=== PATIENT | female | born 1950 | race Caucasian/White ===

== ENCOUNTER 2018-05-22 06:17 | Inpatient (IN) | payer MEDICARE, OTHER ==
--- NOTE | 2018-05-03 09:34 | ANES ---
Anesthesia Pre Procedure Eval Allergies/Adverse Reactions: Allergies Allergy/AdvReac Type Severity Reaction Status Date / Time adhesive tape Allergy swelling, Verified 05/03/18 09:25 blisters nitrofurantoin Allergy swelling Verified 05/03/18 09:25 [From Macrobid] Penicillins Allergy Hives Verified 05/03/18 09:25 Sulfa (Sulfonamide Allergy swelling Verified 05/03/18 09:25 Antibiotics) fructose AdvReac intolerance Verified 05/03/18 09:25 - Planned Procedure Planned Procedure: Left Arthroplasty Total Knee Medication List Reviewed:: Yes Allergies Verified: Yes - Family Anesthesia History Family History:: no untoward family reactions to anesthesia, no familial bleeding tendencies, no family history of clotting disorders, no family history of premature - Airway/Neck/Teeth Within Normal Limits:: Yes Teeth Condition: Intact Neck Exam: non-tender, full range of motion, normal alignment Mallampatti Score: 2 Thyromental (T-M) distance: > 6 cm Mandibulo Hyoid distance: > 3 cm - Small mouth - Respiratory Respiratory: chest non-tender, lungs clear, normal breath sounds, no respiratory distress Smoking Status: Former smoker Sleep Apnea currently treated: Yes Sleep Apnea by current assessment: Yes Discussed Risks/Treatment of TYRA: Yes Comments:: Adductor canal block for post op pain relief - Cardiovascular Patient History - Cardiac/Respiratory: Hypertension, Hyperlipidemia Tolerates Activity: Fair Heart Sounds: S1 & S2, Regular - Anesthesia Assessment and Plan ASA Class: PS, III Anesthesia Type Plan: Block, Spinal Planned difficult intubation/equipment available: No
[~2018-05-22 06:17] MED LIST: RINGER'S SOLUTION,LACTATED 1,000 ML IV PRN; ROPIVACAINE HCL/PF 100 MG, EPINEPHrine 0.2 MG, KETOROLAC TROMETHAMINE 30 MG in NORMAL S... IJ PRN; TRANEXAMIC ACID 1,000 MG in NORMAL SALINE 100 ML IV PRN; ceFAZolin SODIUM 1 GM VIAL IM ONE; ceFAZolin SODIUM 1 GM VIAL IV PRN
--- NOTE | 2018-05-22 07:32 | ANES ---
Anesthesia Pre Procedure Eval Vitals/Labs: Last Vital Signs Temp 36.2 C 05/22/18 06:29 Pulse 99 05/22/18 06:29 Resp 16 05/22/18 06:29 BP 125/42 05/22/18 06:29 Pulse Ox 99 05/22/18 06:29 HOME MEDICATIONS Aspirin [Adult Aspirin] 81 mg PO DAILY 05/03/18 [Last Taken 05/12/18] Atorvastatin Calcium 10 mg PO HS 05/03/18 [Last Taken Unknown] Esomeprazole Magnesium [Nexium] 20 mg PO DAILY PRN 05/03/18 [Last Taken Unknown] Latanoprost/Pf [Latanoprost 0.005% Eye Drop] 7.5 ml OP HS 05/03/18 [Last Taken Unknown] Lisinopril 20 mg PO DAILY 05/03/18 [Last Taken 05/21/18 19:30] Pioglitazone HCl 30 mg PO DAILY 05/03/18 [Last Taken Unknown] Timolol Maleate 5 ml OP DAILY 05/03/18 [Last Taken Unknown] cetirizine 10 mg capsule 10 mg PO DAILY cap 05/16/18 [Last Taken Unknown] gabapentin 300 mg capsule 300 mg PO TID PRN 05/16/18 [Last Taken Unknown] Allergies/Adverse Reactions: Allergies Allergy/AdvReac Type Severity Reaction Status Date / Time adhesive tape Allergy swelling, Verified 05/22/18 06:44 blisters nitrofurantoin Allergy swelling Verified 05/22/18 06:44 [From Macrobid] Penicillins Allergy Hives Verified 05/22/18 06:44 Sulfa (Sulfonamide Allergy swelling Verified 05/22/18 06:44 Antibiotics) fructose AdvReac intolerance Verified 05/22/18 06:44 - Planned Procedure Planned Procedure: Left Arthroplasty Total Knee Medication List Reviewed:: Yes Allergies Verified: Yes Medical History (Last Reviewed 05/22/18 @ 06:44 by Bertha Elias) Arthritis CVA (cerebral vascular accident) Diabetes Former tobacco use Fructose intolerance Onset Date: ~2002 GERD (gastroesophageal reflux disease) Onset Date: 11/17/00 Hiatal hernia Onset Date: ~1999 Hx of cerebral embolism Onset Date: Unknown Hyperlipidemia Onset Date: ~2002 Hypertension Onset Date: 01/05/88 Lives with spouse Peptic ulcer Onset Date: 08/16/91 Rarely consumes alcohol Shingles Onset Date: ~2003 Stress incontinence Onset Date: 04/28/90 Uterine prolapse Onset Date: 12/22/12 Wears glasses Surgical History (Last Reviewed 05/22/18 @ 06:44 by Bertha Elias) History of adenoidectomy Onset Date: ~1961 History of bladder suspension procedure Onset Date: ~1994 History of colonoscopy Onset Date: 10/21/09 History of conization of cervix Onset Date: ~2009 History of detached retina repair History of foot surgery History of surgical procedure on eye proper using laser History of tonsillectomy Onset Date: ~1961 Family History (Last Reviewed 05/22/18 @ 06:44 by Bertha Elias) Mother Diabetes Alzheimers disease Pacemaker Sister Breast cancer Sister Diabetes Father Aneurysm Hypertension Grandmother Breast cancer Heart disease Grandfather Myocardial infarction Heart disease Grandmother Cancer - Airway/Neck/Teeth Within Normal Limits:: Yes Teeth Condition: Intact Mallampatti Score: 2 Thyromental (T-M) distance: > 6 cm Mandibulo Hyoid distance: > 3 cm - Respiratory Respiratory: lungs clear Smoking Status: Former smoker Discussed smoking cessation including day of surgery: No Sleep Apnea currently treated: No Sleep Apnea by current assessment: Yes Discussed Risks/Treatment of TYRA: Yes - Cardiovascular Tolerates Activity: Fair Heart Sounds: S1 & S2, Regular - Anesthesia Assessment and Plan ASA Class: PS, III Anesthesia Type Plan: Block - ultrasound guided adductor canal nerve block for postop analgesia, Spinal
[2018-05-22] MEDS: RINGER'S SOLUTION,LACTATED 1,000 ML IV PRN ×2 (07:47→09:09)
[2018-05-22] MEDS ORDERED: ACETAMINOPHEN 500 MG TABLET PO PRN (10:10)
[2018-05-22] MEDS ORDERED: MORPHINE SULFATE 2 MG/ML DISP.SYRIN IV PRN (10:10)
[2018-05-22] MEDS ORDERED: MAGNESIUM HYDROXIDE 30 ML UDC PO PRN (10:10)
[2018-05-22] MEDS ORDERED: ZOLPIDEM TARTRATE 5 MG TABLET PO PRN (10:10)
[2018-05-22] MEDS ORDERED: DEXTROSE 5%-LACTATED RINGERS 1,000 ML IV PRN (10:10)
[2018-05-22] MEDS ORDERED: diphenhydrAMINE HCL 50 MG/ML VIAL IV PRN (10:10)
[2018-05-22] MEDS ORDERED: MAG HYDROX/ALUMINUM HYD/SIMETH 30 ML UDC PO PRN (10:10)
--- NOTE | 2018-05-22 10:10 | OR ---
Operative Report - Dictated Report Narrative: Date: 05/22/2018 Preoperative diagnosis: Left Knee degenerative joint disease. Postoperative diagnosis: Left Knee degenerative joint disease. Procedure: Left Total knee arthroplasty. Surgeon: Dmitriy Asher M.D. Mask Inspector: Roman Mckee PA-C Anesthesia: Spinal with regional block and local periarticular joint injection. Complications: None Specimens: Bone for disposal. Estimated blood loss: Minimal. Tourniquet time: 88 Minutes at 325 millimeters of mercury. Retained implants: Depuy Attune size 5 narrow left lugged cemented posterior stabilized femoral component. Size 3 fixed-bearing cemented tibial platform. 5 by 5 millimeter posterior stabilized cross-linked tibial insert. 35 millimeter medialized patella button. Indications: Mrs. Argueta is a 68-year-old female who has had long-standing left knee pain and arthrosis. This patient was followed in my clinic for period of time with significant complaints of left knee pain consistent with arthritic changes. She had failed conservative measures including, but not limited to, activity modification, passage of time, medications, and other conservative measures. Patient wished to proceed with surgical treatment. The risks, benefits, and alternatives were discussed in clinic. The risks of , blood clots, bleeding, infection, nerve/tendon blood vessel/ injury, malposition of components, intraoperative fracture, postoperative limited range of motion, persistent pain, failure of components, and need for additional procedures. Patient wished to proceed consent was obtained after answering all questions. Procedure: After marking the correct extremity on the floor, the patient was taken to the operating room. A timeout was performed. IV antibiotics consisting of Ancef were administered prior to the procedure. A regional followed by spinal anesthetic was induced by anesthesia, per my request, on the operative table with all bony prominences well-padded. Mckeon catheter was placed, and a bump was placed under the operative side buttock. SCDs and ZO hose were utilized on the nonoperative leg. A well-padded tourniquet was applied to the operative thigh. The operative leg was then pre-scrubbed with alcohol prepped, and draped in a standard sterile fashion. After exsanguinating the extremity with an Esmarch bandage, the tourniquet was inflated. After marking out the anterior knee for standard incision centered over the patella, the skin was incised and dissected down to the joint retinaculum. The joint retinaculum was marked out as well as the horizontal axis of the patella, and a standard medial parapatellar arthrotomy was then made. The most proximal aspect of the quadriceps tendon and the patella tendon insertion were protected from release. A partial synovectomy was performed as well as a resection of the infrapatellar fat pad. The distal femoral fat pad proximal to the trochlea was also resected using cautery. The soft tissues were elevated off the medial aspect of the proximal tibia using a Montes elevator ensuring that we did not transect the medial collateral ligament. Upon initial evaluation range of motion was approximately 0 degrees to 130 degrees of flexion. There were signs of advanced arthrosis in the medial patellofemoral greater than lateral joint spaces. There were large marginal osteophytes which were removed with a rongeur. The knee was hyperflexed and the patella was tucked laterally. Protecting the surrounding soft tissues with Homans, an entry drill was placed down the femoral canal using Whitesides line for guidance into the entry point. The intramedullary femoral alignment trey was utilized in order to cut the distal femur in 5 degrees of valgus resecting 10 millimeters of bone. Next the distal femur was sized to a size 5. A posterior referencing guide was utilized to place the distal femoral cutting block in 3 degrees of external rotation. This was pinned into place. The rotation was confirmed both visually and based on anatomic landmarks. The 4 in 1 cutting jig of the appropriate size was utilized in order to make all bony cuts. The angle wing was used to ensure no notching. Retractors were utilized in order to protect surrounding soft tissues. This cut did not result in any excessive notching. We then cut the box centered over the distal femur. This allowed for resection of the anterior and posterior cruciate ligaments. I then turned my attention to the preparation of the tibia. Using an extra medullary tibial alignment trey, 6 millimeters of bone was resected off the medial articular surface. This was made perpendicular to the mechanical axis of the joint with the alignment trey centered over the ankle mortise. The alignment trey was checked and was noted to be parallel to the mechanical axis, centered over the medial one third of the tibial tubercle, paralleling the anterior surface of the tibia. We then turned our attention to the remaining meniscus and soft tissues. These were removed while protecting the surrounding ligaments and soft tissues. The marginal osteophytes off the anterior, posterior, medial, lateral aspects of the femur and tibia were removed. The tibia was sized out to a size 3. Next the tibia was drilled and punched in an externally rotated position. Next the trial femur and a series of tibial inserts were utilized in order to allow for full extension and maximal flexion. It was found that a 5 millimeter insert gave the best range of motion and stability at multiple flexion points as well as at full extension there was less than 2 mm of gapping both medially and laterally. There is minimal anterior translation with the knee at 90 degrees of flexion and no signs of being able to dislocate the knee. The patella was then prepared. The initial thickness was 22 millimeters. This was reamed down to 12 millimeters parallel to the anterior surface of the patella. It was sized out to a size 35 medialized patella button. This was then drilled and trialed. Without any medial restraint the patella tracked appropriately and did not sublux or dislocate. At this point, it was felt these were the appropriate sized implants, and all trials were removed. The standard periarticular joint injection consisting of ropivacaine, Toradol, and epinephrine were injected into the periarticular joint tissues. The bony surfaces were thoroughly irrigated with a pulsatile- suction saline irrigation device. A bone plug from the prior resected anterior chamfer cut was placed into the drill hole at the distal femur. The bony surfaces were then dried in preparation for placement of the implants. The cement was vacuum mixed per the cloth hauler's instructions. The cement was placed on the dry bony surfaces and posterior aspect of the implants. The implants were impacted into place, removing all extruded cement. At this point anesthesia administered tranexamic acid per protocol intravenously. The knee was placed in extension with axial loading with the trial insert while the cement cured. Once the cement cured, all remaining extruded cement was removed. The knee was placed through a range of motion with the trial insert to ensure appropriate range of motion and stability. Final range of motion was approximately 0 to 130 degrees. The knee was again thoroughly irrigated with pulsatile saline lavage. The final polyethylene insert was then impacted into place ensuring no retained soft tissues. The remaining periarticular joint injection was injected. A medium Hemovac drain was placed exiting superior laterally. The knee was then placed over a triangle and the arthrotomy was closed with interrupted #1 Vicryl after thoroughly irrigating the joint. The deep and subcutaneous tissues were closed with interrupted 0 and 3-0 Vicryl respectively. Skin was closed with a running subcutaneous 3-0 Monocryl and Prineo Dermabond dressing. 4 x 4's, Sof-Rol, and a full leg Melo wrap were applied. All sponge, needle, blade, and instrument counts were correct prior to closing the wounds. Postoperative condition: The patient was awoken and transferred to the postanesthesia care unit in stable condition. Plan is to be admitted to the inpatient medical/surgical floor postoperatively for 24 hours of IV antibiotics , physical therapy, occupational therapy, and medical comanagement. Patient will be weightbearing as tolerated with range of motion as tolerated. DVT prophylaxis will be with SCDs, ZO hose, and pharmacological anticoagulation. Anticipated hospital stay is approximately 1-3 days.
[2018-05-22] MEDS ORDERED: GABAPENTIN 300 MG CAPSULE PO PRN (10:12)
[2018-05-22] MEDS ORDERED: PANTOPRAZOLE SODIUM 20 MG TABLET.DR PO PRN (10:12)
[2018-05-22] MEDS ORDERED: RINGER'S SOLUTION,LACTATED 1,000 ML IV PRN (10:14)
--- NOTE | 2018-05-22 10:29 | ANES ---
Post Anesthesia Discharge - Transfer of Care Transfer of Care handoff given to nurse: Yes - Discharge from PACU Discharge from PACU when meets criteria: Yes - Discharge to ASU Discharge to ASU-no complications/pt stable: Yes
--- NOTE | 2018-05-22 10:31 | ANES ---
Anesthesia Procedure Note Procedure Note: ANESTHESIA PROCEDURE NOTE Date of Procedure: 05/22/2018. Time of procedure: 809. Performed by: Rajan Lott CRNA Client Solutions Manager: None. Preprocedure diagnosis: Left knee degenerative joint disease. Post procedure diagnosis: Same. Procedure: Left ultrasound guided adductor canal block for postoperative analgesia. Indications: The patient is a 68 -year-old female, requesting left ultrasound- guided abductor canal block for postoperative analgesia related to left total knee arthroplasty. Findings: See below. Details of the procedure: The tissue over the intended target site was cleansed with ChloraPrepand draped in a sterile fashion. 2 ml Lidocaine 1 % was infiltrated to the skin and subcutaneous tissue at the intended target site. Under sterile technique and ultrasound guidance a 18-gauge Tuohy needle was inserted through the left sartorius muscle to the saphenous nerve just anterior and medial to the superficial femoral artery and vein. 15 mL's of 0.5% bupivacaine was injected after negative aspiration for blood. Needle tip and spread of local anesthetic surrounding the saphenous nerve was observed throughout the injection with real time ultrasound visualization. The Tuohy needle was then removed intact. No complications were noted. The images were retained in the Hospital medical database . EBL: Minimal. Fluids: N/A. Specimen: N/A. Post procedure condition: The patient tolerated the procedure well. No complications were noted. Thank you for this consultation. Rajan Lott CRNA
--- NOTE | 2018-05-22 12:56 | ANES ---
Post Anesthesia Assessment - Vital Signs Vitals: Last Vital Signs Temp 36.4 C 05/22/18 10:57 Pulse 83 05/22/18 10:57 Resp 18 05/22/18 10:45 BP 124/51 05/22/18 10:45 Pulse Ox 96 05/22/18 10:57 Airway Patency: Normal - Mental Status Level Of Consciousness: Awake - Pain Level Pain Score: 0 - N/V Assessment Nausea/Vomiting Presence: None Dehydration:: No
[2018-05-22] MEDS: ceFAZolin SODIUM 1 GM in DEXTROSE 5 % IN WATER 100 ML IV SCH ×4 (13:06→17:31)
[2018-05-22] MEDS: KETOROLAC TROMETHAMINE 15 MG/ML VIAL IV SCH ×3 (13:20→22:17)
[2018-05-22] MEDS: oxyCODONE HCL/ACETAMINOPHEN 1 TAB TABLET PO PRN (15:55)
[2018-05-22] MEDS: ONDANSETRON HCL/PF 2 MG/ML VIAL IV PRN (18:04)
[2018-05-22] MEDS: MORPHINE SULFATE 15 MG TABLET.SA PO SCH (22:09)
[2018-05-22] MEDS: SENNOSIDES/DOCUSATE SODIUM 1 TAB TABLET PO SCH (22:09)
[2018-05-22] MEDS: ROSUVASTATIN CALCIUM 10 MG TABLET PO SCH (22:09)
[2018-05-22] MEDS: LATANOPROST 25 DROP BTL LEFTEYE SCH (22:10)
[2018-05-23] MEDS: ceFAZolin SODIUM 1 GM in DEXTROSE 5 % IN WATER 100 ML IV SCH ×2 (00:25)
[2018-05-23] MEDS: oxyCODONE HCL/ACETAMINOPHEN 1 TAB TABLET PO PRN ×3 (00:26→19:31)
[2018-05-23] MEDS: KETOROLAC TROMETHAMINE 15 MG/ML VIAL IV SCH ×4 (04:37→22:28)
[2018-05-23 05:19] LABS: Hematocrit 30.1 % (37.0-47.0); Hemoglobin 9.8 gm/dL (12.5-16.0); Mean Cell Volume 94.7 fl (78-100); Mean Corpuscular Hemoglobin 30.8 pg (27-31); Mean Corpuscular Hgb Conc 32.6 g/dl (32-36); Platelet Count 187 K/mm3 (150-450); Red Blood Count 3.18 M/mm3 (4.2-5.4); Red Cell Distribution Width 14.3 % (11.5-14.0); White Blood Count 7.5 K/mm3 (4.0-10.5)
[2018-05-23 05:37] LABS: Anion Gap 9.2 mmol/L (6.8-13.8); BUN/Creatinine Ratio 19.4 (9.0-21.6); Calcium * 8.5 mg/dL (7.9-10.9); Estimated Creat Clear 41.2; Potassium 4.2 mmol/L (3.4-4.6)
[2018-05-23] MEDS ORDERED: ROPIVACAINE HCL/PF 100 MG, EPINEPHrine 0.2 MG, KETOROLAC TROMETHAMINE 30 MG in NORMAL S... IJ PRN (06:00)
[2018-05-23] MEDS ORDERED: RINGER'S SOLUTION,LACTATED 1,000 ML IV PRN (06:00)
[2018-05-23] MEDS ORDERED: TRANEXAMIC ACID 1,000 MG in NORMAL SALINE 100 ML IV PRN (06:00)
[2018-05-23] MEDS: ONDANSETRON HCL/PF 2 MG/ML VIAL IV PRN ×2 (07:55→19:32)
--- NOTE | 2018-05-23 08:05 | PN ---
Subjective - Date and Time Seen Date: 05/23/18 Time: 08:01 Subjective Narrative: Subjective: Reports nausea with some vomiting this morning. Was able to walk in the case with therapy. Pain is well-controlled. Voiding without any complications. Tolerating by mouth intake. Denies calf pain. Slept well. Physical exam: Alert and oriented to person, place and time Left lower Extremity: Palpable dorsalis pedis pulse. Sensation grossly intact to light touch. Dressings clean and dry. Able to flex and extend ankle and toes. No excessive drainage. Calf and thigh are soft and nontender. Assessment: Postop day 1 status post left total knee arthroplasty. Plan: Due to the need for pain control, post-operative limited mobility, protection of the surgical site and joint, monitoring of the wound, and the management of chronic medical conditions, she requires continued inpatient care. Continue with physical and occupational therapy weightbearing as tolerated. Continue with anticoagulation. 24 hours postoperative prophylactic antibiotics. Pain control with goal to rely on oral medications -the nausea does not seem to be directly related to her pain medicines but we will adjust these if needed if she continues to have the nausea and vomiting. Continue bowel regimen. Will need 6 weeks with walker or assitive device to protect joint while ambulating during the recovery process. Discharge planning. Discontinue drain and Mckeon catheter. Objective - Vitals Vitals: Last Vital Signs Temp 36.5 C 05/23/18 06:17 Pulse 70 05/23/18 06:17 Resp 12 05/23/18 06:17 BP 127/50 05/23/18 06:17 Pulse Ox 98 05/23/18 06:17 - Abnormal Lab Findings Abnormal Lab Findings: Abnormal Lab Results 05/23/18 05/23/18 Range/Units 05:05 05:05 RBC 3.18 L (4.2-5.4) M/mm3 Hgb 9.8 L (12.5-16.0) gm/dL Hct 30.1 L (37.0-47.0) % RDW 14.3 H (11.5-14.0) % Est GFR (Non-Af Amer) 54 L (60-130) mL/min Random Glucose 156 H (70-110) mg/dL Cauti Physician Documentation - Urinary Catheter Management Urethral (Mckeon) Date of Insertion: 05/22/18 Time of Insertion: 08:30 Assessment/Plan - Problems/Diagnosis (1) Status post total left knee replacement Problem: Acute (2) Acute blood loss anemia Problem: Acute (3) Diabetes mellitus Problem: Chronic Qualifiers: Diabetes mellitus type: type 2 (4) Gastroesophageal reflux disease Problem: Chronic Qualifiers: (5) Hyperlipidemia Problem: Chronic Qualifiers: (6) Hypertension Problem: Chronic Qualifiers:
[2018-05-23] MEDS: TIMOLOL MALEATE 50 DROP BTL LEFTEYE SCH (09:33)
[2018-05-23] MEDS: ENOXAPARIN SODIUM 40 MG/0.4 ML SYRG SC SCH (09:36)
[2018-05-23] MEDS: PIOGLITAZONE HCL 15 MG TABLET PO SCH (11:15)
[2018-05-23] MEDS: LISINOPRIL 20 MG TABLET PO SCH (11:16)
[2018-05-23] MEDS: MORPHINE SULFATE 15 MG TABLET.SA PO SCH ×2 (11:16→20:59)
[2018-05-23] MEDS: LORATADINE 10 MG TABLET PO SCH (11:17)
[2018-05-23] MEDS: ROSUVASTATIN CALCIUM 10 MG TABLET PO SCH (20:55)
[2018-05-23] MEDS: SENNOSIDES/DOCUSATE SODIUM 1 TAB TABLET PO SCH (20:55)
[2018-05-23] MEDS: LATANOPROST 25 DROP BTL LEFTEYE SCH (20:56)
[2018-05-24] MEDS: ONDANSETRON HCL/PF 2 MG/ML VIAL IV PRN ×2 (01:36→07:58)
[2018-05-24] MEDS: oxyCODONE HCL/ACETAMINOPHEN 1 TAB TABLET PO PRN ×2 (01:41→13:32)
[2018-05-24] MEDS: KETOROLAC TROMETHAMINE 15 MG/ML VIAL IV SCH (05:09)
[2018-05-24] MEDS ORDERED: MINERAL OIL 1 ENEMA BTL RC ONE (09:17)
[2018-05-24] MEDS ORDERED: MINERAL OIL 1 ENEMA BTL RC PRN (09:19)
[2018-05-24] MEDS: PIOGLITAZONE HCL 15 MG TABLET PO SCH (10:01)
[2018-05-24] MEDS: ENOXAPARIN SODIUM 40 MG/0.4 ML SYRG SC SCH (10:02)
[2018-05-24] MEDS: LISINOPRIL 20 MG TABLET PO SCH (10:02)
[2018-05-24] MEDS: LORATADINE 10 MG TABLET PO SCH (10:02)
[2018-05-24] MEDS: TIMOLOL MALEATE 50 DROP BTL LEFTEYE SCH (10:03)
[2018-05-24] MEDS: MORPHINE SULFATE 15 MG TABLET.SA PO SCH (10:06)
--- NOTE | 2018-05-24 13:16 | DS ---
(1) Status post total left knee replacement Problem: Acute (2) Acute blood loss anemia Problem: Acute (3) Diabetes mellitus Problem: Chronic Qualifiers: Diabetes mellitus type: type 2 (4) Gastroesophageal reflux disease Problem: Chronic Qualifiers: (5) Hyperlipidemia Problem: Chronic Qualifiers: (6) Hypertension Problem: Chronic Qualifiers: Description of Stay: Mrs. Argueta was admitted to the floor after undergoing left total knee arthroplasty. Tolerated this well. Was admitted to the floor postoperatively for 24 hours of IV antibiotics, pain control, medical comanagement, and occupational and physical therapy. OT and PT were consulted to assist with activities of daily living and ambulation. Was made weightbearing as tolerated with range of motion as tolerated. Pain was initially controlled with IV regimen. This was transitioned to oral once tolerating a by mouth intake. Was resumed on home diet and medications. Had a Mckeon catheter inserted and the operating room which was discontinued on postoperative day 1. A drain was placed intraoperatively into the knee which was discontinued on postoperative day 1. Lovenox SCD and ZO hose were utilized for DVT prophylaxis. Vital signs remained stable to the hospital course. Serial labs were obtained which showed a final hemoglobin of 9.8 grams. BMP was reviewed and was stable. Physical examination throughout the hospital course showed an extremity that had sensation that was intact to light touch, palpable pulses, a benign wound, motor intact to the toes, ankle, and knee. Knee range of motion was approximately 5 degrees to 70 degrees. Once an oral pain regimen was tolerated and physical therapy goals were met, it was felt that they were stable for discharge to home. Instructions: Continue with weightbearing as tolerated and range of motion as tolerated. It is OK to shower on the wound if it is not draining. If you note any drainage or for comfort you can cover with dry gauze and tape. Change every 2-3 days as needed. Continue with physical therapy. Resume home diet. Report any fever over 101.5 Fahrenheit, uncontrolled pain, increased drainage, foul odor of drainage, new or increased calf pain or shortness of breath, or any other significant complaints. A 325mg dialy aspirin will be started after finishing anticoagulation if not allergic. Continue with ZO hose on the operative extremity until instructed otherwise. No driving until instructed otherwise. Follow up in approximately 10-14 days. Procedures Performed: see notes below List Procedures: Left total knee arthroplasty Results and Findings: Lab Pending Results 05/23/18 05:05: WBC 7.5, RBC 3.18 L, Hgb 9.8 L, Hct 30.1 L, MCV 94.7, MCH 30.8, MCHC 32.6, RDW 14.3 H, Plt Count 187, MPV 10.0 05/23/18 05:05: Sodium 135, Plasma Sodium 136, Potassium 4.2, Chloride 103, Carbon Dioxide 27.0, Anion Gap 9.2, BUN 21, Creatinine 1.08, Est GFR (Non-Af Amer) 54 L, BUN/Creatinine Ratio 19.4, Random Glucose 156 H, Calcium 8.5 Discharge Location: Home Disposition: Home self-care Condition: Good Discharge Activity: Activity as tolerated, Weight bearing, Other - with wheeled walker Discharge Diet: Consistent carbs, Low fat/chol Referrals: Ruben Zaman MD [Primary Care Provider] - Additional Patient Instructions (free text): Physical Therapy outpatient at [facility] in [place], [place] on May 25 at 10:40 am, fax discharge orders to [phone]. Follow up with Dr. Asher Precious06/13 at 9:45am. Prescriptions (Any new or edited meds): Enoxaparin Sodium [Lovenox] 40 mg SC Q24H #7 disp.syrin Morphine Sulfate [Ms Contin] 15 mg PO Q12H #20 tablet.sa oxyCODONE HCL/ACETAMINOPHEN [Percocet 5 MG/325 MG] 2 tab PO Q4H PRN #90 tab PRN Reason: Moderate Pain (Pain Scale 4-6) Promethazine HCl [Phenergan (Promethazine)] 25 mg PO Q6H PRN #60 tab PRN Reason: nausea/vomiting Sennosides/Docusate Sodium [Senokot-S] 2 tab PO HS #30 tab Complete Home Medications List: Complete Home Medication List: Atorvastatin Calcium 10 mg PO HS 05/03/18 Esomeprazole Magnesium [Nexium] 20 mg PO DAILY PRN 05/03/18 Latanoprost/Pf [Latanoprost 0.005% Eye Drop] 7.5 ml OP HS 05/03/18 Lisinopril 20 mg PO DAILY 05/03/18 Pioglitazone HCl 30 mg PO DAILY 05/03/18 Timolol Maleate 5 ml OP DAILY 05/03/18 cetirizine 10 mg capsule 10 mg PO DAILY cap 05/16/18 gabapentin 300 mg capsule 300 mg PO TID PRN 05/16/18 Enoxaparin Sodium [Lovenox] 40 mg SC Q24H #7 disp.syrin 05/24/18 Mag Hydrox/Aluminum Hyd/Simeth [Maalox Plus Suspension] 30 ml PO Q6H PRN udc Magnesium Hydroxide [Milk Of Magnesia] 30 ml PO DAILY PRN udc 05/24/18 Morphine Sulfate [Ms Contin] 15 mg PO Q12H #20 tablet.sa 05/24/18 Promethazine HCl [Phenergan (Promethazine)] 25 mg PO Q6H PRN #60 tab 05/24/18 Sennosides/Docusate Sodium [Senokot-S] 2 tab PO HS #30 tab 05/24/18 oxyCODONE HCL/ACETAMINOPHEN [Percocet 5 MG/325 MG] 2 tab PO Q4H PRN #90 tab 08/29
[2018-05-24 15:31] VITALS: BP 99/42
== END 2018-05-24 14:10 | disposition home or self-care (01) | DRG 470 ==
LOC: MS 06:17 → EDSTATUS 08:00
PROVIDERS: ADMIT Orthopaedic Surgery; ATTEND Orthopaedic Surgery
CPT/HCPCS: 36415; 73560; 80048; 85027; 97110; 97116; 97161; 97165; 97535; J2405